=== PATIENT | female | born 1980 | race Caucasian/White ===

== ENCOUNTER 2016-10-26 15:45 | Emergency (ER) | payer SELFPAY ==
[2016-10-26 15:49] VITALS: BP 100/61; BMI 31.2
--- NOTE | 2016-10-26 16:28 | DR.GENAD ---
HPI - PCP Primary Care Physician: RODRIGUEZ - Complaint/Symptoms Chief Complaint:: PT C/O MIAGRAINE THAT STARTED TODAY AROUND LUNCH. - Nurses notes reviewed Nurses Notes Review: Yes - Source History Provided: Patient - Mode of Arrival Mode of Arrival: Ambulatory - Timing Onset of Chief Complaint: 10/26/16 Came on: Gradually - Duration Duration: Constant How lon Duration: Hours - Location Location: frontal - Severity Severity: Mild - Modifying Factors Worsens:: unknown - Associated Signs and Symptoms Associated Signs and Symptoms: nausea - Other History Other History: bipolar PMH - PMH Past Medical History: Yes Past Medical History: Anxiety, Arthritis, Asthma, Headaches, Hypothyroidism Past Medical History Comment: bipolar, substance abuse Past Surgical History: Yes Surgical History: Appendectomy, Tonsillectomy Past Surgical History Comment: TUBALIGATION - Family History History of Family Medical Conditions: Yes Family Medical History: Cancer - Social History Does patient currently use any type of tobacco product: Yes Have you used tobacco products in the last 12 months: Yes Type of Tobacco Use: Cigarettes Does any household member use tobacco: Yes Alcohol Use: None Do you use any recreational Drugs:: No Lives With: Family Lives Where: Home - infectious screening In the last 2 months have you had wt loss of >10#?: NO Have you had fever, night sweats or hemotysis?: No Have you traveled outside the country in the last 6 months?: No Isolation: Standard ROS - Review of Systems Constitutional: No Symptoms Reported Eyes: No Symptoms Reported ENTM: No Symptoms Reported Respiratoy: No Symptoms Reported Cardiovascular: No Symptoms Reported Gastrointestinal/Abdominal: No Symptoms Reported Genitourinary: No Symptoms Reported Neurological: Headache Musculoskeletal: No Symptoms Reported Integumentary: No Symptoms Reported Hematologic/Lymphatic: No Symptoms Reported Endocrine: No Symptoms Reported Psychiatric: Depression All Other Systems: Reviewed and Negative PE - Vital Signs Vitals: Temperature 98.6 F Pulse Rate 80 Respiratory Rate 20 Blood Pressure [Right Arm] 125/72 Blood Pressure [Left Arm] 124/68 Blood Pressure 100/61 O2 Sat by Pulse Oximetry 97 - General Limitations: No Limitations General Appearance: Alert, In No Apparent Distress - Head Head Exam: Normal Inspection - Eyes Eye exam: Normal Appearance, EOMI. negative: Scleral Icterus, Conjunctival Injection - ENT ENT Exam: Normal Exam, Normal Oropharynx External Ear Exam: Normal External Inspection Nose Exam: Normal Nose Exam Mouth Exam: Normal Inspection. negative: Drooling Throat Exam: Normal Inspection. negative: Tonsillar Erythema - Neck Neck Exam: Normal Inspection, Full ROM, Trachea Midline - Chest Chest Inspection: Normal Inspection - Respiratory Respiratory Exam: negative: Accessory Muscle Use, Respiratory Distress - Extremities Extremities Exam: Normal Inspection, Full ROM, Tenderness - Neurologic Neurological Exam: Alert, Oriented X3, CN II-XII Intact, Other (no numbness) - Psychiatric Psychiatric Exam: Depressed - Skin Skin Exam: Intact, Normal Color - Diagnosis Discharge Problem: Headache Qualifiers: Headache type: unspecified Headache chronicity pattern: acute headache Intractability: not intractable Qualified Code(s): R51 - Headache - Discharge Plan Condition: Stable - Follow ups/Referrals Follow ups/Referrals: ROSA RODRIGUEZ [Primary Care Provider] - 3 days - Instructions
[2016-10-26] MEDS ORDERED: BENADRYL INJ 50 MG VIAL IM ONE (16:46)
[2016-10-26] MEDS ORDERED: HALDOL INJ IM ONE (16:46)
[2016-10-26] MEDS ORDERED: HALDOL INJ ONE (17:01)
[2016-10-26] MEDS ORDERED: BENADRYL INJ 50 MG VIAL ONE (17:01)
== END 2016-10-26 17:18 | disposition home or self-care (01) ==
LOC: ER 15:51
DX: R51 Headache (principal)
CPT/HCPCS: 96372; 99282; J1200; J1630

== ENCOUNTER 2016-11-17 18:22 | Emergency (ER) | payer SELFPAY ==
[2016-11-17 18:30] VITALS: BP 99/69; BMI 31.2
== END 2016-11-17 19:21 | disposition left against medical advice (07) ==
LOC: ER 18:39
DX: R51 Headache (principal)
CPT/HCPCS: 99281